=== PATIENT | male | born 1980 | race Caucasian/White ===

== ENCOUNTER → 2017-09-15 | Outpatient (CLI) | payer OTHER ==
[2017-09-16 17:56] LABS: APPEARANCE Normal; DOUBLE FORM 1.5 %; MOTILE/EJACULATE 2.8 x10(6) (>=9.0); MOTILE/mL 0.5 x10(6) (>=6.0); MOTILITY 9 % (>=40); SEMEN PH 8.5 (>=7.2); SEMEN VOLUME 5.5 mL (>=1.5); SPERM/ML 5.8 x10(6) (>=15.0); WBC/ML 0.12 x10(6) (<1.00)
== END ==
LOC: CLAB 08:21
PROVIDERS: ATTEND Obstetrics & Gynecology
DX: N46.11 Organic oligospermia (principal)
CPT/HCPCS: 89322